=== PATIENT | male | born 1945 | race Caucasian/White ===

== ENCOUNTER 2019-06-06 08:41 | Emergency (ER) | payer MEDICARE ==
[2019-06-06] MEDS ORDERED: Lidocaine 1% (PF) 30 ML VIAL ONE (08:57)
[2019-06-06] MEDS ORDERED: Bacitracin 1 PK ONE (08:58)
== END 2019-06-06 09:29 | disposition home or self-care (01) ==
LOC: NAV ERS 08:41
DX: S61.210A Laceration without foreign body of right index finger without damage to nail, initial encounter (principal); S61.212A Laceration without foreign body of right middle finger without damage to nail, initial encounter; I25.10 Atherosclerotic heart disease of native coronary artery without angina pectoris; I25.2 Old myocardial infarction; W22.8XXA Striking against or struck by other objects, initial encounter
CPT/HCPCS: 12002; J2001

== ENCOUNTER 2019-06-15 08:48 | Emergency (ER) | payer MEDICARE | END 2019-06-15 09:23 | disposition home or self-care (01) | LOC: NAV ERS 08:48 | DX: S61.210D Laceration without foreign body of right index finger without damage to nail, subsequent encounter (principal); S61.212D Laceration without foreign body of right middle finger without damage to nail, subsequent encounter; I25.2 Old myocardial infarction; I25.10 Atherosclerotic heart disease of native coronary artery without angina pectoris; W01.0XXD Fall on same level from slipping, tripping and stumbling without subsequent striking against object, subsequent encounter ==

== ENCOUNTER 2020-10-01 17:50 | Emergency (ER) | payer MEDICARE ==
[2020-10-01 19:16] LABS: #Basophils 0.1 thou/uL (0.0-0.2); #Eosinphils 0.3 thou/uL (0.0-0.7); #Lymphocytes 1.4 thou/uL (1.20-3.40); #Monocytes 0.7 thou/uL (0.11-0.59); #Neutrophils 4.3 thou/uL (1.40-6.50); %Basophils 0.8 % (0.0-1.0); %Eosinophils 4.9 % (0.0-10.0); %Lymphocytes 20.3 % (21.0-51.0); %Monocytes 9.8 % (0.0-10.0); %Neutrophils 64.3 % (42.0-75.0); Mean Corpuscular Hemoglobin 28.5 pg (27.0-31.0); Mean Platelet Volume 8.8 fL (7.4-10.4); Platelet Count 195 thou/uL (130-400); RBC Distribution Width 13.5 % (11.5-14.5); Red Blood Cell (RBC) Count 5.28 mill/uL (4.70-6.10); White Blood Cell (WBC) Count 6.7 thou/uL (4.8-10.8)
[2020-10-01] MEDS ORDERED: Metoprolol Tartrate 5 MG/5 ML VIAL ONE (19:32)
[2020-10-01 19:39] LABS: ALT (SGPT) 11 U/L (8-55); AST (SGOT) 21 U/L (5-34); Albumin 4.1 g/dL (3.4-4.8); Alkaline Phosphatase 91 U/L (40-110); Anion Gap 15 mmol/L (10-20); BUN (Urea Nitrogen) 11 mg/dL (8.4-25.7); Bilirubin, Total 1.2 mg/dL (0.2-1.2); Calc. Creatinine Clearance 0 mL/min (70-130); Calcium 8.9 mg/dL (7.8-10.44); Carbon Dioxide 21 mmol/L (23-31); Chloride 106 mmol/L (98-107); Globulin 3.2 g/dL (2.4-3.5); Glucose 77 mg/dL (83-110); Potassium 3.9 mmol/L (3.5-5.1); Protein, Total 7.3 g/dL (5.8-8.1); Sodium 138 mmol/L (136-145)
== END 2020-10-01 19:57 | disposition home or self-care (01) ==
LOC: NAV ERS 17:50
DX: M54.6 Pain in thoracic spine (principal); I10 Essential (primary) hypertension; I25.10 Atherosclerotic heart disease of native coronary artery without angina pectoris; I25.2 Old myocardial infarction
CPT/HCPCS: 80053; 84484; 85025; 93005; 96374

== ENCOUNTER 2020-10-03 17:57 | Emergency (ER) | payer MEDICARE | END 2020-10-03 18:37 | disposition home or self-care (01) | LOC: NAV ERS 17:57 | DX: Z20.822 Contact with and (suspected) exposure to COVID-19 (principal) | CPT/HCPCS: 99283 ==

== ENCOUNTER 2021-03-20 18:31 | Emergency (ER) | payer MEDICARE ==
[2021-03-21 20:39] LABS: SARS-CoV-2 PCR by NAA Not Detected (NotDetected)
== END 2021-03-20 19:37 | disposition home or self-care (01) ==
LOC: NAV ERS 18:31
DX: J06.9 Acute upper respiratory infection, unspecified (principal); Z20.822 Contact with and (suspected) exposure to COVID-19
CPT/HCPCS: 87804; 99283; U0003; U0005

== ENCOUNTER 2021-11-23 16:58 | Emergency (ER) | payer MEDICARE ==
[2021-11-23] MEDS ORDERED: Bacitracin 1 PK ONE (17:41)
== END 2021-11-23 17:54 | disposition home or self-care (01) ==
LOC: NAV ERS 16:58
DX: S01.81XD Laceration without foreign body of other part of head, subsequent encounter (principal); X58.XXXD Exposure to other specified factors, subsequent encounter
CPT/HCPCS: 99282

== ENCOUNTER 2021-11-25 14:39 | Emergency (ER) | payer MEDICARE ==
[2021-11-25] MEDS ORDERED: Erythromycin Base 0.5% Oint 1 GM TUBE ONE (14:58)
[2021-11-25] MEDS ORDERED: Bacitracin 1 PK ONE (14:58)
== END 2021-11-25 15:20 | disposition home or self-care (01) ==
LOC: NAV ERS 14:39
DX: S01.81XD Laceration without foreign body of other part of head, subsequent encounter (principal); X58.XXXD Exposure to other specified factors, subsequent encounter